=== PATIENT | female | born 1970 | race Caucasian/White ===

== ENCOUNTER → 2018-07-28 | Outpatient (CLI) | payer OTHER | END | disposition home or self-care (01) | LOC: HKI 13:07 | DX: M16.12 Unilateral primary osteoarthritis, left hip (principal) | CPT/HCPCS: 73502 ==

== ENCOUNTER 2018-10-07 10:35 | Inpatient (IN) | payer OTHER ==
[2018-10-07] MEDS: CELECOXIB 200 MG CAP PO (11:50)
[2018-10-07] MEDS: ONDANSETRON 4 MG INJ IV ×3 (11:50→21:18)
[2018-10-07] MEDS: DEXAMETHASONE 4 MG/ML 1 ML INJ IV (11:51)
[2018-10-07] MEDS: LANSOPRAZOLE 30 MG CAP PO (11:51)
[2018-10-07] MEDS: LACTATED RINGER'S 1,000 ML IV ×3 (11:52→21:17)
[2018-10-07] MEDS: CEFAZOLIN 2 GM/50 ML (PMX) 50 ML IVPB ×2 (12:00→17:40)
[2018-10-07] MEDS: ACETAMINOPHEN 500 MG TAB PO ×2 (12:00→21:18)
[2018-10-07] MEDS: ACETAMINOPHEN 1000MG/100ML IV 100 ML IVPB (12:01)
[2018-10-07] MEDS: GABAPENTIN 300 MG CAP PO ×2 (12:02→21:18)
[2018-10-07] MEDS ORDERED: morphine SULFATE/PF (10 MG/10 ML) INJ (12:29)
[2018-10-07] MEDS ORDERED: METOCLOPRAMIDE 10 MG INJ IV (12:30)
[2018-10-07] MEDS ORDERED: DESFLURANE 15 MIN (12:30)
[2018-10-07] MEDS ORDERED: ALBUTEROL 0.083% (NEB) 2.5 MG/3 ML AMP HHN (12:30)
[2018-10-07] MEDS ORDERED: FENTAnyl 50 MCG/ML VIAL IV ×2 (12:30)
[2018-10-07] MEDS ORDERED: DIPHENHYDRAMINE 50 MG INJ IV ×2 (12:30→17:00)
[2018-10-07] MEDS ORDERED: HYDROmorphONE 1 MG/5 ML IV SYRINGE IV ×3 (12:30)
[2018-10-07] MEDS ORDERED: MEPERIDINE 25 MG INJ IV (12:30)
[2018-10-07] MEDS ORDERED: MIDAZOLAM 1 MG/ML 2 ML INJ (12:31)
[2018-10-07] MEDS: TRANEXAMIC ACID 1GM/100ML(PMX) 100 ML PRE-OP IVPB ×3 (14:03→16:12)
[2018-10-07] MEDS: TRANEXAMIC ACID 1GM/100ML(PMX) 100 ML AT CLOSING IVPB (14:03)
[2018-10-07] MEDS ORDERED: SUCCINYLCHOLINE CHLORIDE 100 MG/5 ML SYG IV (14:13)
[2018-10-07] MEDS ORDERED: LIDOCAINE 100 MG SYRINGE (14:13)
[2018-10-07] MEDS ORDERED: ROCURONIUM 50 MG INJ (14:13)
[2018-10-07] MEDS ORDERED: CEFAZOLIN 1 GM INJ (14:13)
[2018-10-07] MEDS ORDERED: PROPOFOL 20 ML (14:13)
[2018-10-07] MEDS ORDERED: TRANEXAMIC ACID 1GM/100ML(PMX) 100 ML (14:13)
[2018-10-07] MEDS: VANCOMYCIN 1 GM INJ (16:15)
[2018-10-07] MEDS ORDERED: SUGAMMADEX SODIUM 200 MG/2 ML VIAL IV (16:37)
[2018-10-07] MEDS ORDERED: ROPIVACAINE 0.5 % 30 ML VIAL (16:43)
[2018-10-07] MEDS ORDERED: NA PHOSPHATE/BIPHOS 133 ML ENEMA PR (17:00)
[2018-10-07] MEDS ORDERED: BISACODYL 10 MG SUPP PR (17:00)
[2018-10-07] MEDS ORDERED: oxyCODONE 5 MG TAB PO ×3 (17:00)
[2018-10-07] MEDS ORDERED: MAGNESIUM HYDROXIDE 30ML CUP PO (17:00)
[2018-10-07] MEDS ORDERED: NACL 0.9% 3 ML SYG IV (17:00)
[2018-10-07] MEDS ORDERED: SENNA/DOCUSATE NA (8.6MG/50MG) TAB PO (17:00)
[2018-10-07] MEDS ORDERED: HYDROmorphONE 1 MG/ML SYG IV (17:00)
[2018-10-07] MEDS ORDERED: NALOXONE (0.4 MG/ML) INJ IV (17:00)
[2018-10-07] MEDS: DOCUSATE SODIUM 100 MG CAP PO (17:44)
[2018-10-07] MEDS ORDERED: hydrOXYzine HCL 25 MG TAB PO (19:30)
[2018-10-08] MEDS: CEFAZOLIN 2 GM/50 ML (PMX) 50 ML IVPB ×2 (01:05→09:47)
[2018-10-08 05:32] LABS: ADD MAN DIFF? NO
[2018-10-08 05:37] LABS: WHITE BLOOD COUNT 13.1 10^3/ul (4.8-10.8)
[2018-10-08 05:37] LABS: BASOPHILS % 0.1 % (0.0-2.0); HEMATOCRIT 26.7 % (37.0-47.0); LYMPHOCYTES # 1.6 10^3/ul (0.8-2.9); LYMPHOCYTES % 12.2 % (15.0-51.0); MEAN CORPUSCULAR HEMOGLOBIN 27.4 pg (29.0-33.0); MEAN CORPUSCULAR HGB CONC 33.7 g/dl (32.0-37.0); MEAN CORPUSCULAR VOLUME 81.4 fl (82.0-101.0); MONOCYTE # 0.9 10^3/ul (0.3-0.9); MONOCYTES % 6.5 % (0.0-11.0); NEUTROPHIL # 10.5 10^3/ul (1.6-7.5); NEUTROPHILS % 80.4 % (39.0-77.0); PLATELET COUNT 276 10^3/UL (140-415); RED BLOOD COUNT 3.28 10^6/ul (4.20-5.40); RED CELL DISTRIBUTION WIDTH 13.7 % (11.5-14.5)
[2018-10-08] MEDS: LACTATED RINGER'S 1,000 ML IV (05:41)
[2018-10-08] MEDS: BETHANECHOL 25 MG TAB PO (05:41)
[2018-10-08] MEDS: DEXAMETHASONE 10 MG/ML 1 ML INJ IV (05:42)
[2018-10-08] MEDS: ACETAMINOPHEN 500 MG TAB PO ×2 (05:42→14:19)
[2018-10-08] MEDS: PANTOPRAZOLE (EC) 40 MG TAB PO (05:42)
[2018-10-08] MEDS: ONDANSETRON 4 MG INJ IV (05:42)
[2018-10-08 05:55] LABS: INR 1.02; PROTIME 13.5 Sec (11.9-14.9); PT RATIO 1.1
[2018-10-08 06:03] LABS: ANION GAP 6 (5-13); BLOOD UREA NITROGEN 14 mg/dl (7-20); CARBON DIOXIDE 24 mmol/L (21-31); CHLORIDE 108 mmol/L (97-110); CREATININE 0.52 mg/dl (0.44-1.00); Estimated GFR > 60 mL/min (>60); GLUCOSE 136 mg/dl (70-220); POTASSIUM 3.8 mmol/L (3.5-5.1); SODIUM 138 mmol/L (135-144)
[2018-10-08] MEDS: ASPIRIN (EC) 81 MG TAB PO (09:47)
[2018-10-08] MEDS: DOCUSATE SODIUM 100 MG CAP PO (09:47)
[2018-10-08] MEDS: VENLAFAXINE (XR) 75 MG CAP PO (11:05)
[2018-10-08] MEDS ORDERED: ONDANSETRON 4 MG INJ IV (17:00)
== END 2018-10-08 17:15 | disposition home health service (06) | DRG 470 ==
LOC: REC 10:35 → MS1 20:30
PROC: 0SRB04Z Replacement of Left Hip Joint with Ceramic on Polyethylene Synthetic Substitute, Open Approach (ICD-10-PCS; principal; 2018-10-07 12:39)
DX: M16.12 Unilateral primary osteoarthritis, left hip (principal); Q65.89 Other specified congenital deformities of hip; F32.9 Major depressive disorder, single episode, unspecified; F41.9 Anxiety disorder, unspecified
CPT/HCPCS: 72170; 73500; 73530; 80048; 85025; 85610; 86850; 86900; 86901; 87081; 87086; 88304; 88311; 97116; 97161; 97165; 97530